=== PATIENT | female | born 2000 | race Caucasian/White ===

== ENCOUNTER 2024-09-02 21:27 | Emergency (ER) | payer OTHER ==
[~2024-09-02] VITALS: Ht 157.5 cm; Wt 51.0 kg
[2024-09-02 21:46] VITALS: O2SAT 98
[2024-09-02 22:32] LABS: CLARITY URINE CLEAR (CLEAR); COLOR URINE YELLOW (YELLOW); GLUCOSE URINE NEGATIVE (NEGATIVE); KETONES URINE TRACE (NEGATIVE); LEUKOCYTE ESTERASE URINE NEGATIVE (NEGATIVE); NITRITE URINE NEGATIVE (NEGATIVE); OCCULT BLOOD URINE NEGATIVE (NEGATIVE); PROTEIN URINE 2+ (NEGATIVE); UROBILINOGEN URINE 0.2 E.U./dL (0.2-1.0)
[2024-09-02 22:59] LABS: BACTERIA URINE NONE SEEN; RBC URINE NONE SEEN /hpf (0-2); SQUAMOUS EPITHELIAL CELL URINE RARE /lpf (RARE/1+); WBC URINE NONE SEEN /hpf (0-2)
[2024-09-03] MEDS: ACETAMINOPHEN 500MG TABLET PO ONE (00:11)
[2024-09-03] MEDS ORDERED: CEPH500C2 MT (00:14)
[2024-09-03] MEDS: ACETAMINOPHEN 500MG TABLET PO NR (00:15)
[2024-09-03 00:35] VITALS: BP 149/100; PULSE 73; RESP 14; TEMP 36.7; O2SAT 100
== END 2024-09-03 00:40 | disposition home or self-care (01) ==
LOC: ER 21:27
DX: N39.0 Urinary tract infection, site not specified (principal); Z79.899 Other long term (current) drug therapy
CPT/HCPCS: 76770; 81003; 81025; 99284